=== PATIENT | male | born 1990 | race Two or more races ===

== ENCOUNTER 2016-08-24 06:27 | Emergency (ER) | payer MEDICAID ==
--- NOTE | 2016-08-24 06:45 | ED Physician Chart ---
Chief Complaint/HPI - Patient Information Date Seen:: 08/24/16 Time Seen:: 06:30 Chief Complaint:: medical screening exam History of Present Illness:: 25-year-old male, otherwise healthy, brought in by police with acute, moderate, need for medical clearance/screening exam. Has associated suspicion of driving under the influence of alcohol. Allergies:: Allergies Allergy/AdvReac Type Severity Reaction Status Date / Time No Known Allergies Allergy Verified 08/24/16 06:32 Vitals:: Vital Signs - 8 hr 08/24/16 06:30 Temp 98.5 F HR 110 RR 18 BP 140/92 O2 Sat % 99 Historian:: Patient, Other (police) Review:: Nurse's Note Reviewed Review of Systems - Review of Systems Other: Complete system review otherwise unremarkable except as noted in HPI. Past Medical History - Past Medical History Past Medical History: No significant medical hx Family History: None Social History: Alcohol, No Drug Use Surgical History: None Psychiatricy History: None Medication: None Family Medical History - Family Member Mother History Unknown: Yes Physical Exam - Physical Examination Other:: INITIAL VITAL SIGNS: Reviewed by me GENERAL: Alert and interactive. No acute distress HEAD: Head is normocephalic and atraumatic EYES: EOMI. . No scleral icterus. No conjunctival injection ENT: Moist mucous membranes. NECK: Supple. No masses. Full range of motion RESPIRATORY: No tachypnea. Clear breath sounds bilaterally. No wheezing, rales, or rhonchi CV: Regular rate and rhythm. No murmurs, rubs, or gallops ABDOMEN: Soft, non-distended, non-tender. No guarding. No rebound. No masses. EXTREMITIES: No deformity. No cyanosis. No edema. SKIN: Warm and dry. No obvious rashes. NEUROLOGIC: Alert and oriented. Face is symmetric. Speech is normal. Moves all extremities equally. Motor and sensory distally intact. ED Septic Shock - . Is Septic Shock (SBP<90, OR Lactate>4 mmol\L) present?: No - <6hrs of presentation: Vital Signs: Vital Signs - 8 hr 08/24/16 06:30 Temp 98.5 F HR 110 RR 18 BP 140/92 O2 Sat % 99 Reassessment (Disposition) - Reassessment Reassessment:: Patient is medically cleared for booking into [facility]. Reassessment Condition:: Improved - Diagnosis Diagnosis:: Medical screening exam - Aftercare/Follow up Instructions Aftercare/Follow-Up Instructions:: Counseled pt regarding lab results/diagnosis & need follow up, Refer to Discharge Instructions - Patient Disposition Discharge/Transfer:: Assisted/[facility]pc Time:: 06:44 Condition at Disposition:: Improved ED Discharge Plan - Patient Disposition Admit/Discharge/Transfer: PT DISCHARGED HOME Condition at Disposition: Improved
== END 2016-08-24 06:59 | disposition home or self-care (01) ==
LOC: ER 06:27
DX: Z02.89 Encounter for other administrative examinations (principal)
CPT/HCPCS: Z7502